=== PATIENT | female | born 1940 | race Caucasian/White ===

== ENCOUNTER 2019-01-27 08:22 | Emergency (ER) | payer MEDICARE, BC ==
[~2019-01-27] VITALS: Ht 149.9 cm; Wt 64.5 kg
[~2019-01-27 08:22] MED LIST: ASPI-903 PO; CALC1TAB37 PO; CLOT10TR11 MT; GLYB5TAB3 PO; LANS30CA47 PO; LISI-471 PO; METF-849 PO; METO-53 PO; METO10TA3 PO; SIMV80TA18 PO
[2019-01-27 08:27] VITALS: Ht 149.9 cm; Wt 64.5 kg
--- NOTE | 2019-01-27 10:15 | ERD ---
ER Documentation Chief Complaint Chief Complaint pt bib family with left side sciatca pain HPI 78-year-old female with a history of diabetes, hypertension, hyperlipidemia, arthritis and sciatica presents to the ED complaining of a one-week history of worsening, atraumatic, severe, sharp and achy left shoulder and left-sided low b ack pain. ROS All systems reviewed and are negative except as per history of present illness. Medications Home Meds Reported Medications Lansoprazole* (Lansoprazole*) 30 Mg Capsule.dr, 30 MG PO DAILY, CAP 01/27/19 Metoprolol Tartrate* (Lopressor*) 50 Mg Tab, 50 MG PO BID, #60 TAB 01/27/19 Simvastatin* (Zocor*) 40 Mg Tablet, 40 MG PO QHS, #30 TAB 01/27/19 Amlodipine Besylate* (Norvasc*) 5 Mg Tablet, 5 MG PO DAILY, TAB 01/27/19 Insulin Detemir (Levemir Flextouch) 100 Unit/1 Ml Insuln.pen, 15 UNIT SQ QAM, EA 01/27/19 Dapagliflozin Propanediol (Farxiga) 5 Mg Tablet, 5 MG PO DAILY, #30 TAB 01/27/19 Glyburide* (Glyburide*) 5 Mg Tablet, 10 MG PO BID, #60 TAB 01/27/19 Lisinopril* (Lisinopril*) 5 Mg Tablet, 5 MG PO DAILY, #30 TAB 01/27/19 Discontinued Reported Medications Lansoprazole* (Lansoprazole*) 15 Mg Capsule.dr, 15 MG PO NEEDED, CAP 01/27/19 Aspirin* (Aspirin* Chew) 81 Mg Tab.chew, 81 MG PO DAILY 09/17/12 Simvastatin* (Simvastatin*) 80 Mg Tablet, 80 MG PO DAILY 09/17/12 Glyburide* (Glyburide*) 5 Mg Tablet, 5 MG PO BID 09/17/12 Metformin* (Glucophage*) 500 Mg Tab, 500 MG PO TID 09/17/12 Metoprolol (Lopressor) 50 Mg Tablet, 50 MG PO DAILY 09/17/12 Lansoprazole* (Prevacid*) 30 Mg Capsule.dr, 30 MG PO BID 09/17/12 Lisinopril* (Lisinopril*) 20 Mg Tablet, 20 MG PO DAILY 09/17/12 Calcium Citrate/Vitamin D3 (Citracal + D Caplet) 1 Each Tablet, 1 EACH PO DAILY 09/17/12 Discontinued Scripts Metoclopramide Hcl* (Metoclopramide Hcl*) 10 Mg Tablet, 10 MG PO TID for 30 Days, TAB Prov:ABENA RUBI MD 06/13/15 Clotrimazole* (Mycelex Alfred*) 10 Mg Troc, 10 MG MT TID for 7 Days Prov:ABENA RUBI MD 06/13/15 Allergies Allergies: Coded Allergies: codeine (Verified Allergy, Mild, VOMITING, 01/27/19) PMhx/Soc History of Surgery: Yes (eye sx, D & C) Anesthesia Reaction: Yes (2013) Hx Neurological Disorder: No Hx Respiratory Disorders: No Hx Cardiac Disorders: Yes (HTN) Hx Psychiatric Problems: No Hx Miscellaneous Medical Probl: Yes (acute pancreatitis, DM 2, Htn, hyperlipidemia, L-disk disease) Hx Alcohol Use: No Hx Substance Use: No Hx Tobacco Use: No Smoking Status: Former smoker Physical Exam Vitals Vital Signs Date Temp Pulse Resp B/P (MAP) Pulse Ox O2 O2 Flow FiO2 Time Delivery Rate 01/27/19 76 18 160/90 98 Room Air 12:30 (113) 01/27/19 63 18 163/83 99 Room Air 09:44 (109) 01/27/19 98.3 84 22 140/77 98 08:27 (98) Physical Exam Const: No acute distress Head: Atraumatic Eyes: Normal Conjunctiva ENT: Normal External Ears, Nose and Mouth. Neck: Full range of motion. No meningismus. Resp: Clear to auscultation bilaterally Cardio: Regular rate and rhythm, no murmurs Abd: Soft, non tender, non distended. Normal bowel sounds Skin: No petechiae or rashes Back: No midline or flank tenderness Ext: No cyanosis, or edema Neur: Awake and alert Psych: Normal Mood and Affect Result Diagram: 01/27/19 1047 01/27/19 1047 Results 24 hrs Laboratory Tests Test 01/27/19 10:47 White Blood Count 6.2 10^3/ul Red Blood Count 6.03 10^6/ul Hemoglobin 16.0 g/dl Hematocrit 47.3 % Mean Corpuscular Volume 78.4 fl Mean Corpuscular Hemoglobin 26.5 pg Mean Corpuscular Hemoglobin Concent 33.8 g/dl Red Cell Distribution Width 13.8 % Platelet Count 249 10^3/UL Mean Platelet Volume 10.4 fl Immature Granulocytes % 0.300 % Neutrophils % 59.6 % Lymphocytes % 30.9 % Monocytes % 7.4 % Eosinophils % 1.0 % Basophils % 0.8 % Nucleated Red Blood Cells % 0.0 /100WBC Immature Granulocytes # 0.020 10^3/ul Neutrophils # 3.7 10^3/ul Lymphocytes # 1.9 10^3/ul Monocytes # 0.5 10^3/ul Eosinophils # 0.1 10^3/ul Basophils # 0.1 10^3/ul Nucleated Red Blood Cells # 0.0 10^3/ul Sodium Level 140 mmol/L Potassium Level 4.5 mmol/L Chloride Level 107 mmol/L Carbon Dioxide Level 21 mmol/L Anion Gap 12 Blood Urea Nitrogen 25 mg/dl Creatinine 0.69 mg/dl Est Glomerular Filtrat Rate mL/min mL/min Glucose Level 181 mg/dl Calcium Level 10.4 mg/dl Current Medications Medications Dose Sig/Ralph Start Time Status Last (Trade) Ordered Route PRN Stop Time Admin Dose Reason Admin Morphine 4 mg ONCE STAT 01/27/19 DC 01/27/19 Sulfate IV 10:17 10:29 (morphine) 01/27/19 10:19 Ondansetron 4 mg ONCE STAT 01/27/19 DC 01/27/19 HCl (Zofran IV 10:17 10:29 Inj) 01/27/19 10:19 10 mg ONCE ONCE 01/27/19 DC 01/27/19 Metoclopramid IV 12:30 12:29 e HCl 01/27/19 12:31 (Reglan) Sodium 500 ml @ Q1H STAT 01/27/19 DC 01/27/19 Chloride 500 mls/hr IV 13:29 13:38 01/27/19 14:28 Ondansetron 4 mg ONCE STAT 01/27/19 DC 01/27/19 HCl (Zofran IV 13:29 13:38 Inj) 01/27/19 13:31 Procedures/MDM DOCUMENTS REVIEWED: ED nurse, [ ] LAB INTERPRETATION: [] IMAGING: PROCEDURE: Left shoulder series CLINICAL INDICATION: Pain TECHNIQUE: 3 views left shoulder were obtained COMPARISON: None FINDINGS: Moderate degenerate joint disease of the left acromioclavicular and glenohumeral joints. No acute fracture dislocation or AC separation. No focal bony blastic or lytic lesion. Punctate soft tissue calcification adjacent to the left humeral head consistent with calcific tendonitis. The soft tissues are otherwise unremarkable. IMPRESSION: 1. No acute fracture dislocation or acromioclavicular joint separation. 2. Degenerate changes as above. 3. Calcific tendonitis. RPTAT:AAJJ Physician Melissa Date Time Electronically viewed and signed by Physician Melissa on 01/27/2019 11:30 BM/ ED COURSE: [] REEXAMINATION/REEVALUATION: Time: 15:28. Doing well. Tolerating p.o.'s. Observation Note: Time: 4 hours Family Hx: No Hypertension Evaluation: Multiple exams showed improving symptoms and no evidence of MEDICAL DECISION MAKIN-year-old female with a history of diabetes, hypertension, hyperlipidemia, arthritis and sciatica presents to the ED complaining of a one-week history of worsening, atraumatic, severe, sharp and achy left shoulder and left-sided low back pain. Stable for discharge with precautionary instructions and outpatient follow-up as counseled. Though the patient's latest blood pressure was elevated (>120/80), the patient has a known history of hypertension and urged to pursue adjustment of their medical therapy within a week with their primary care physician. Please refer to the medication reconciliation form for the current list of hypertensive medications. Counseled patient and family regarding diagnostic workup, diagnosis and need for followup. Understands to return to ED if symptoms recur, worsen or any other concerns. Departure Diagnosis: Primary Impression: Severe pain of left shoulder Additional Impressions: Acute exacerbation of chronic low back pain Essential hypertension Osteoarthritis Osteoarthritis location: unspecified site Osteoarthritis type: unspecified Qualified Codes: M19.90 - Unspecified osteoarthritis, unspecified site Condition: Stable DMITRY NEUMANN MD January 27, 2019 10:15
[2019-01-27] MEDS ORDERED: ONDANSETRON 4 MG INJ IV STA ×2 (10:17→13:29)
[2019-01-27] MEDS ORDERED: morphine 4 MG/ML VIAL IV STA (10:17)
[2019-01-27] MEDS ORDERED: LISI-313 PO (11:29)
[2019-01-27] MEDS ORDERED: DAPA5TAB PO (11:30)
[2019-01-27] MEDS ORDERED: GLYB5TAB3 PO (11:30)
[2019-01-27] MEDS ORDERED: INSU100I27 SQ (11:30)
[2019-01-27] MEDS ORDERED: SIMV40TA2 PO (11:31)
[2019-01-27] MEDS ORDERED: AMLO5TAB4 PO (11:31)
[2019-01-27] MEDS ORDERED: METO-429 PO (11:31)
[2019-01-27] MEDS ORDERED: LANS15CA5 PO (11:32)
[2019-01-27] MEDS ORDERED: LANS30CA PO (12:08)
[2019-01-27] MEDS ORDERED: METOCLOPRAMIDE 10 MG INJ IV ONE (12:30)
[2019-01-27] MEDS ORDERED: SOD CHLORIDE 0.9% 500 ML IV STA (13:29)
[2019-01-27] MEDS ORDERED: KETO10TA PO (15:44)
[2019-01-27] MEDS ORDERED: ONDA4TAB14 PO (15:44)
[2019-01-27 15:50] VITALS: BP 153/78; PULSE 76; RESP 18
== END 2019-01-27 15:50 | disposition home or self-care (01) ==
LOC: FTE 08:22 → E/R 15:50
DX: M25.512 Pain in left shoulder (principal); E11.9 Type 2 diabetes mellitus without complications; I10 Essential (primary) hypertension; M19.90 Unspecified osteoarthritis, unspecified site; M54.5 Low back pain; Z79.4 Long term (current) use of insulin
CPT/HCPCS: 73030; 80048; 85025; 96374; 96375; 96376; 99284; J2270; J2405; J2765; J7040

== ENCOUNTER → 2019-03-01 | Outpatient (CLI) | payer MEDICARE, BC ==
[~2019-03-01] MED LIST changes: +AMLO5TAB4 PO; -ASPI-903 PO; -CALC1TAB37 PO; -CLOT10TR11 MT; +DAPA5TAB PO; +INSU100I27 SQ; +KETO10TA PO; +LANS30CA PO; -LANS30CA47 PO; +LISI-313 PO; -LISI-471 PO; -METF-849 PO; +METO-429 PO; -METO-53 PO; -METO10TA3 PO; +ONDA4TAB14 PO; +SIMV40TA2 PO; -SIMV80TA18 PO
== END | disposition home or self-care (01) ==
LOC: C/S 10:36
PROVIDERS: ATTEND Internal Medicine
DX: N28.1 Cyst of kidney, acquired (principal); K86.1 Other chronic pancreatitis; K76.0 Fatty (change of) liver, not elsewhere classified; M43.16 Spondylolisthesis, lumbar region; R10.9 Unspecified abdominal pain
CPT/HCPCS: 74150